=== PATIENT | female | born 1990 | race Caucasian/White ===

== ENCOUNTER 2016-10-23 22:24 | Emergency (ER) | payer BC, OTHER ==
[~2016-10-23] VITALS: Ht 149.9 cm; Wt 88.0 kg
[~2016-10-23 22:24] MED LIST: ALBU8.5H5 INH; AZIT250T94 PO; GUAI118L94 PO; KENC1 TOP; LORA-186 PO; PRED20TA PO; [UNRECOGNIZED DRUG - CODE] TOP
[2016-10-23 22:35] VITALS: Ht 149.9 cm; Wt 88.0 kg
[2016-10-23] MEDS ORDERED: ACETAMINOPHEN 325 MG TAB PO ONE (23:30)
--- NOTE | 2016-10-24 00:13 | ERD ---
ER Documentation Chief Complaint Date/Time DATE: 10/24/16 TIME: 00:06 Chief Complaint fever X3 days,BECKER HPI This pleasant 26-year-old female presents to emergency department with 4 day history of fever, chills, nasal congestion, frontal sinus headache, clogged ears , with nausea. Patient reports she is unable to taste food but denies sore throat or difficulty swallowing. Patient denies dizziness, shortness of breath , reports occasional cough dry nonproductive, denies back pain, chest pain, shortness of breath or dizziness. Patient has tried no [id number]-iov-[id number] medication for symptomatic relief. Has remote history of pneumonia over a year ago. Has not been prescribed antibiotics in the last 6 months. ROS All systems reviewed and are negative except as per history of present illness. Medications Home Meds Active Scripts Prednisone* (Prednisone*) 20 Mg Tab, 40 MG PO DAILY for 4 Days, TAB Prov:BRIANNA LORA NP 05/02/15 Guaifenesin-Codeine Phosphate* (Guaifenesin* with Codeine Liq) 120 Ml Liquid, 5 ML PO Q4H for COUGH, #60 ML Prov:BRIANNA LORA NP 05/02/15 Loratadine* (Claritin*) 10 Mg Tablet, 10 MG PO DAILY, #30 TAB Prov:BRIANNA LORA NP 05/02/15 Azithromycin* (Zithromax*) 250 Mg Tablet, 250 MG PO .ZPACK DIRECTED, #6 TAB TAKE 500 MG (2 TABS) THE FIRST DAY THEN 250 MG (1 TAB) DAYS 2-5 Prov:BRIANNA OLRA NP 05/02/15 Triamcinolone Acetonide (Triamcinolone Acetonide) 0.1% - 15 Gm Cream.gm., 1 APPLIC TOP DAILY for 7 Days, TUB 30G Prov:ROSHAN CORNELIUS MD 03/08/15 Terbinafine Hcl* (Lamisil* AT) 1%-15 Gm Cream..g., 1 APPLIC TOP BID for 14 Days , TUB 30G OK Prov:ROSHAN CORNELIUS MD 03/08/15 Reported Medications Albuterol Sulfate* (Albuterol Sulfate* HFA) Unknown Strength Hfa.aer.ad, INH Q4 Y for SHORTNESS OF BREATH, #1 EA 05/02/15 Allergies Allergies: Coded Allergies: No Known Drug Allergies (Verified Adverse Reaction, Unknown, 09/28/11) PMhx/Soc History of Surgery: No Anesthesia Reaction: No Hx Neurological Disorder: No Hx Respiratory Disorders: Yes (asthma) Hx Cardiac Disorders: No Hx Psychiatric Problems: Yes (HX DEPRESSION) Hx Miscellaneous Medical Probl: Yes (BRAIN TUMOR, DEPRESSION, SCHIZO) Hx Alcohol Use: No Hx Substance Use: No Hx Tobacco Use: No Smoking Status: Never smoker Physical Exam Vitals Vital Signs Date Time Temp Pulse Resp B/P Pulse Ox O2 Delivery O2 Flow Rate FiO2 10/23/16 22:35 101.2 132 18 121/67 95 Vitals stable, triage notes reviewed Physical Exam Const: Patient obviously does not feel well, febrile, mouth breathing, no acute distress Head: Atraumatic Eyes: Normal Conjunctiva, PERRLA, EOMI ENT: Bilateral tympanic membranes partially obstructed with cerumen, nasal mucosa edematous +2 with purulent discharge noted on right, bilateral maxillary and frontal sinus tenderness, patient reports dizziness with leaning forward. Pharynx is pink, mucus noted posteriorly, uvula rises and falls with pronation, tonsils not visualized. Neck: Full range of motion..~ No meningismus. No palpable cervical chain no Resp: Clear to auscultation bilaterally, no rales wheezes or rhonchi Cardio: Abd: Skin: Back: Ext: Neur: Awake and alert Psych: Normal Mood and Affect Results 24 hrs Current Medications Medications (Trade) Dose Ordered Sig/Rukhsana Route PRN Reason Start Time Stop Time Status Last Admin Dose Admin Acetaminophen (Tylenol Tab) 650 mg ONCE ONCE PO 10/23/16 23:30 10/23/16 23:33 DC 10/23/16 23:47 Procedures/MDM This 26-year-old female presents to emergency department with 4 days history of nasal congestion, sinus headache, maxillary and frontal sinus congestion, fever , chills, decreased hearing, and report of not being able to taste food. Patient reports she feels worse now than she did 4 days ago. Denies history of seasonal allergies or asthma. Patient has tried no [id number] medication for symptomatic relief. Meningitis, pneumonia, not suspected. Symptoms are consistent with a sinusitis viral versus bacterial. Plan to discharge patient home with amoxicillin, 500 mg p.o. 3 times daily 10 days, Flonase nasal spray 1 squirt each nostril daily 10 days. Treat fever with Tylenol or Motrin for temperature greater than 100.5. Increase fluids, increase rest. Return to emergency department for worsening of symptoms, fever not responding to treatment, dizziness, headache, or chest pain. I feel the patient is stable for discharge at this time with outpatient management and follow-up by primary care physician. I have discussed results, examination findings, the treatment plan with the patient and family present prior to discharge. Indications for emergent reevaluation, side effects of medication were also discussed. All questions were answered. Patient verbalizes understanding and agrees with plan of care. Departure Diagnosis: Primary Impression: Sinusitis Sinusitis location: unspecified location Chronicity: acute Recurrence: not specified as recurrent Qualified Code: J01.90 - Acute sinusitis, recurrence not specified, unspecified location Condition: Good Patient Instructions: Acute Sinusitis Referrals: [facility] Additional Instructions: Thank you for for coming to [facility] for your care today. Please ask your nurse or provider if you have questions about your care today and do not leave until all your questions have been answered. Please use any medications given as directed and follow-up with your doctor (or the doctor you were referred to) in the next 2-3 days. If you do not have a primary care doctor you may [place] [facility] [place] You may also use motrin and tylenol as needed for fever and/or pain unless instructed otherwise by your provider or nurse. Indications for more urgent follow-up have been discussed, but you may return to the Emergency Department at ANY time for any worrisome or worsening symptoms. If you have abdominal pain, please know that no test or exam you received is perfect and you should follow up within 8 hours for continued pain. If you had any imaging studies today, such as an X-Ray or CT Scan, these studies will be reviewed later by a radiologist. You will be called if there are important findings that were not identified today, so make sure the contact information you provided at registration is correct. If you received any narcotic pain control medicine today, such as Vicodin, Morphine or Dilaudid, your coordination and judgment may be affected for a number of hours. Please do not drive or operate heavy machinery, and you may want someone to assist you at home. If you were given a prescription for narcotic medication, be aware that it is very addictive- use sparingly and only if necessary. DALE FABIAN Oct 24, 2016 00:13
[2016-10-24] MEDS ORDERED: AMO500 PO (00:14)
[2016-10-24] MEDS ORDERED: FLUT9.9S NASAL (00:14)
[2016-10-24 00:28] VITALS: BP 134/93; PULSE 99; RESP 17; TEMP 98.7
== END 2016-10-24 00:28 | disposition home or self-care (01) ==
LOC: FTE 22:24
DX: J01.90 Acute sinusitis, unspecified (principal); J45.909 Unspecified asthma, uncomplicated; Z85.841 Personal history of malignant neoplasm of brain
CPT/HCPCS: 99283

== ENCOUNTER 2017-05-13 21:38 | Emergency (ER) | END 2017-05-14 01:30 | disposition left against medical advice (07) ==